=== PATIENT | male | born 1975 | race African-American/Black ===

== ENCOUNTER 2019-02-27 07:45 | Emergency (ER) | payer SELFPAY ==
[~2019-02-27] VITALS: Ht 175.3 cm; Wt 128.4 kg
[2019-02-27 07:54] VITALS: BP 154/70
--- NOTE | 2019-02-27 07:54 | NUR ---
Patient ambulated to bed 10. RN evaluating patient at bedside.
--- NOTE | 2019-02-27 08:09 | NUR ---
DR VARGAS AT BEDSIDE
[2019-02-27 08:17] VITALS: BP 154/70
== END 2019-02-27 08:17 | disposition home or self-care (01) ==
LOC: MED 07:45
DX: L03.211 Cellulitis of face (principal); Z98.890 Other specified postprocedural states
CPT/HCPCS: 99281